=== PATIENT | female | born 1990 | race Two or more races ===

== ENCOUNTER 2016-12-07 20:54 | Outpatient (CLI) | payer OTHER ==
[~2016-12-07] VITALS: Ht 160 cm; Wt 90.0 kg
[2016-12-07] MEDS ORDERED: LACTATED RINGER'S 1000 ML IV ONE (21:15)
[2016-12-07] MEDS ORDERED: PROMETHAZINE INJ 25 MG/ML VIAL (J2550) IV PRN (21:15)
[2016-12-07] MEDS ORDERED: PROMETHAZINE INJ 25 MG/ML VIAL (J2550) As Ordered ONE (21:22)
[2016-12-08 00:50] VITALS: BP 115/55
== END 2016-12-08 01:30 | disposition home or self-care (01) ==
LOC: M LDO 20:54
PROVIDERS: ATTEND Advanced Practice Midwife
DX: O98.513 Other viral diseases complicating pregnancy, third trimester (principal); Z3A.40 40 weeks gestation of pregnancy

== ENCOUNTER 2016-12-15 12:36 | Inpatient (IN) | payer OTHER ==
[~2016-12-15] VITALS: Ht 160 cm; Wt 87.0 kg
[2016-12-15 12:58] VITALS: BP 119/58
[2016-12-15 14:00] LABS: MEAN CORPUSCULAR HEMOGLOBIN 25.4 pg (27.0-33.0); MEAN CORPUSCULAR HGB CONC 32.8 g/dl (32.0-36.5); MEAN CORPUSCULAR VOLUME 77.5 fl (80.0-96.0); RED CELL DISTRIBUTION WIDTH 14.2 % (11.5-14.5); WHITE BLOOD COUNT 6.1 K/mm3 (4.0-10.0)
[2016-12-15] MEDS: miSOPROStol 50 MCG 1/2 TAB (S0191) PO SCH ×3 (14:00→22:11)
--- NOTE | 2016-12-15 14:02 | HPE ---
DATE OF ADMISSION: 12/15/2016 REASON FOR ADMISSION: Induction of labor. HISTORY OF PRESENT ILLNESS: Ms. Latif is a 26-year-old, 1, who presents at 41 weeks 0 days estimated gestational age by her last menstrual period and confirmed by a five week ultrasound for induction of labor. Her course has been uncomplicated. She initiated care in the first trimester and has been appropriate throughout. PAST MEDICAL HISTORY: None. PAST SURGICAL HISTORY: 1. 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 2. Tonsillectomy and adenoidectomy. 3. LEEP in 2005 for LUISA III. MEDICATIONS: - vitamins ALLERGIES: - CODEINE (hives) SOCIAL HISTORY: She was an occasional smoker during her . Denies any alcohol or drug use. PHYSICAL EXAMINATION: VITAL SIGNS: Stable. She is afebrile. She has a Category I heart rate tracing. GENERAL APPEARANCE: Well appearing in no acute distress. LUNGS: Clear to auscultation bilaterally. CARDIOVASCULAR: Heart regular rate and rhythm. ABDOMEN: Soft. Gravid. Nontender. Estimated weight 3600 grams. CERVICAL EXAM: 1 cm dilated, 25% effaced, -3 station. LABS: Blood type A positive. Antibody screen negative. Rubella immune. RPR nonreactive. Hepatitis surface antigen negative. HIV negative. Hepatitis C nonreactive. Chlamydia and gonorrhea screens are negative. She had a normal one hour Glucola of 109. She is GBS negative. ASSESSMENT: 1. Ms. Latif is a 26-year-old, 1, that presents at 41 weeks 0 days estimated gestational age by her last menstrual period and confirmed by a first trimester ultrasound here for induction of labor. 2. Reassuring status. PLAN: 1. Admit to labor and delivery. CBC, RPR and type and screen. 2. Patient has been thoroughly counseled in regards to induction of labor. I discussed medications as well as procedures performed in labor and delivery. She has also been verbally consented for emergency surgery, blood products and anesthesia and desires to proceed. 3. Will initiate her induction of labor with 50 mcg of misoprostol orally.
[2016-12-15] MEDS ORDERED: PRENTAB9 PO (14:55)
[2016-12-15 16:10] VITALS: BP 116/59
[2016-12-15 18:11] VITALS: BP 128/58
[2016-12-16] VITALS (37 sets, daily range): BP systolic 107–143; BP diastolic 51–72
[2016-12-16] MEDS ORDERED: BUTORPHANOL 2 MG/ML INJ (J0595) IV PRN (02:00)
[2016-12-16] MEDS ORDERED: PROMETHAZINE INJ 25 MG/ML VIAL (J2550) IV PRN ×2 (02:00→09:15)
[2016-12-16] MEDS: miSOPROStol 50 MCG 1/2 TAB (S0191) PO SCH ×2 (02:41→07:48)
[2016-12-16] MEDS ORDERED: diphenhydrAMINE INJ 50MG/ML VIAL (J1200) IV PRN ×2 (05:15→17:00)
[2016-12-16] MEDS ORDERED: LACTATED RINGER'S 1000 ML IV STA (09:01)
[2016-12-16] MEDS ORDERED: LR 1,000 ML IV SCH (09:01)
[2016-12-16] MEDS ORDERED: BUTORPHANOL 2 MG/ML INJ (J0595) IV ONE ×2 (09:15→13:30)
[2016-12-16] MEDS ORDERED: OXYTOCIN DRIP 30 UNITS in APPROPRIATE DILUENT 1 EA IV SCH (13:00)
[2016-12-16] MEDS ORDERED: FENTANYL 2MCG/ML ROPIVACAINE 0.2% NACL 250 ML CADD As Ordered ONE (15:35)
[2016-12-16] MEDS ORDERED: LACTATED RINGER'S 1000 ML IV PRN (17:00)
[2016-12-16] MEDS ORDERED: ePHEDrine SULFATE 25 MG/5 ML(5MG/ML) SYRINGE IV PRN (17:00)
[2016-12-16] MEDS ORDERED: FENTANYL/ROPIVACAINE/NACL CADD 250 ML EPIDURAL SCH (17:00)
[2016-12-16] MEDS ORDERED: EPIDURAL/PCA KEYS XX PRN (17:00)
[2016-12-16] MEDS ORDERED: REFRIGERATOR IV KEYS XX PRN (17:00)
[2016-12-16] MEDS ORDERED: EPIDURAL COMMENT XX SCH (17:00)
[2016-12-16] MEDS ORDERED: ONDANSETRON 4MG/2ML VIAL (J2405) IV PRN (17:00)
[2016-12-16] MEDS ORDERED: NALOXONE INJ 0.4 MG/1 ML VIAL (J2310) IV PRN (17:00)
[2016-12-17] VITALS (14 sets, daily range): BP systolic 103–130; BP diastolic 49–58
[2016-12-17] MEDS ORDERED: UNASYN 3 GM VIAL As Ordered ONE (01:03)
[2016-12-17] MEDS ORDERED: ACETAMINOPHEN 500 MG TAB As Ordered ONE (01:04)
[2016-12-17] MEDS ORDERED: AMPICILLIN SOD/SULBACTAM SOD 3 GM in D5W MINI-BAG PLUS 100 ML IV ONE ×3 (01:15→07:15)
[2016-12-17] MEDS ORDERED: ACETAMINOPHEN 500 MG TAB PO ONE (01:15)
[2016-12-17 02:56] LABS: CORD GAS ABE V -4.3; CORD GAS HCO3 V 20.7 MEQ/L; CORD GAS PCO2 V 38.2 mmHg; CORD GAS PO2 V 28.5 mmHg; CORD GAS SBC V 20.1 MEQ/L; CORD GAS TCO2 V 21.9 MEQ/L
[2016-12-17 02:57] LABS: CORD GAS ABE A -4.8; CORD GAS HCO3 A 21.9 MEQ/L; CORD GAS O2 SAT A 29.4 %; CORD GAS PCO2 A 46.4 mmHg; CORD GAS PH A 7.292 UNITS; CORD GAS PO2 A 16.8 mmHg; CORD GAS SBC A 18.9 MEQ/L; CORD GAS TCO2 A 23.3 MEQ/L
[2016-12-17] MEDS ORDERED: OXYTOCIN DRIP 30 UNITS in APPROPRIATE DILUENT 1 EA IV SCH ×2 (03:14→06:15)
[2016-12-17] MEDS ORDERED: IBUPROFEN 800 MG TAB PO PRN (03:15)
[2016-12-17] MEDS ORDERED: ANUSOL HC CREAM 30GM TOP PRN (03:15)
[2016-12-17] MEDS ORDERED: DIBUCAINE 1% OINTMENT 30GM TOP PRN (03:15)
[2016-12-17] MEDS ORDERED: ACETAMINOPHEN 500 MG TAB PO PRN (03:15)
[2016-12-17] MEDS ORDERED: MEASLES,MUMPS,RUBELLA VACCINE INJ (MMR-II) (90707) SC SCH (03:15)
[2016-12-17] MEDS ORDERED: DOCUSATE SODIUM 100 MG CAP PO PRN (03:15)
[2016-12-17] MEDS ORDERED: RHOGAM 300 MCG (1500 IU) INJ (J2790) IM SCH (03:15)
[2016-12-17] MEDS ORDERED: METHYLERGONOVINE MALEATE 0.2 MG TAB PO PRN (03:15)
[2016-12-17] MEDS ORDERED: MOM 30ML SUSPENSION UDC PO PRN (03:15)
[2016-12-17] MEDS: PRENATAL VITAMIN TAB PO SCH (07:36)
[2016-12-17 10:20] LABS: BASO % 0.1 % (0.0-1.0); EOS % 0.2 % (0.0-3.0); LARGE UNSTAINED CELL # 0.1 K/mm3 (0.0-0.4); LARGE UNSTAINED CELL % 0.8 % (0.0-4.0); LYMPH # 1.2 K/mm3 (1.5-6.5); LYMPH % 7.4 % (24.0-44.0); MEAN CORPUSCULAR HEMOGLOBIN 24.8 pg (27.0-33.0); MEAN CORPUSCULAR HGB CONC 32.5 g/dl (32.0-36.5); MEAN CORPUSCULAR VOLUME 76.3 fl (80.0-96.0); MONO # 0.7 K/mm3 (0.0-0.8); MONO % 4.2 % (0.0-5.0); NEUTROPHILS # 14.5 K/mm3 (1.8-7.7); NEUTROPHILS % 87.3 % (36.0-66.0); PLATELET COUNT, AUTOMATED 151 k/mm3 (150-450); RED CELL DISTRIBUTION WIDTH 14.1 % (11.5-14.5); WHITE BLOOD COUNT 16.6 K/mm3 (4.0-10.0)
[2016-12-18 02:17] VITALS: BP 131/57
[2016-12-18 06:21] VITALS: BP 113/53
--- NOTE | 2016-12-18 08:32 | DN ---
DATE OF DELIVERY: 12/17/2016 TIME OF : 02:39 GENDER: Female APGARS: 9/9 WEIGHT: 8 pounds 13 ounces, or 3968 grams. ESTIMATED BLOOD LOSS: 300 mL ANESTHESIA: Epidural. LACERATIONS: None. COUNTS: 5 laparotomy sponges accounted for prior to and after delivery; 2 sharps removed from the delivery field. CORD GASES: 7.29 with base excess of -4.8, -4.3 respectively. DELIVERY NOTE: On 12/17/2016, at 02:39, Ms. Latif a 26-year-old 1, now para 1, had a spontaneous vaginal delivery of a liveborn female , Apgars 9/9, weight 3968 grams, 8 pounds 13 ounces. Head was delivered left occiput anterior (EDWARD) over an intact perineum. There was a compound left nuchal arm. The corpus was then delivered. Infant was handed to mother with a good cry. Cord was clamped times two, was cut by the patient's support person under my direction. Cord blood and cord gas were obtained. Placenta was drained and delivered grossly intact. A premixed bag of 500 mL of normal saline with 30 units of Pitocin was bolused along with uterine massage until the uterus was firm. On inspection, the cervix, vagina, and perineum were grossly intact and hemostatic. Mother and baby recovered in stable condition.
[2016-12-18] MEDS: PRENATAL VITAMIN TAB PO SCH (09:23)
[2016-12-18 10:14] VITALS: BP 89/44
[2016-12-18 14:00] VITALS: BP 118/61
[2016-12-18 18:38] VITALS: BP 118/53
[2016-12-19 06:13] VITALS: BP 102/50
[2016-12-19] MEDS ORDERED: ACET50TA PO (07:19)
[2016-12-19] MEDS ORDERED: IBUP-1114 PO (07:19)
[2016-12-19] MEDS: PRENATAL VITAMIN TAB PO SCH (07:30)
== END 2016-12-19 10:25 | disposition home or self-care (01) | DRG 560 ==
LOC: M LDI 12:36 → M OBS 12-17 04:48
PROVIDERS: ADMIT Obstetrics & Gynecology; ATTEND Obstetrics & Gynecology
PROC: 3E0P7GC Introduction of Other Therapeutic Substance into Female Reproductive, Via Natural or Artificial Opening (ICD-10-PCS; 2016-12-15)
PROC: 10E0XZZ Delivery of Products of Conception, External Approach (ICD-10-PCS; principal; 2016-12-17)
DX: O48.0 Post-term pregnancy (principal); O41.1230 Chorioamnionitis, third trimester, not applicable or unspecified; Z3A.41 41 weeks gestation of pregnancy; O32.6XX0 Maternal care for compound presentation, not applicable or unspecified; Z37.0 Single live birth; O99.334 Smoking (tobacco) complicating childbirth; F17.210 Nicotine dependence, cigarettes, uncomplicated